=== PATIENT | female | born 1960 | race Caucasian/White ===

== ENCOUNTER 2017-08-13 12:08 | Emergency (ER) | payer OTHER ==
[2017-08-13 12:29] VITALS: BP 105/62
--- NOTE | 2017-08-13 12:47 | UC ---
Complaint Female HPI - HPI Summary HPI Summary: Dysuria, frequency, hesitency for about 4 days. No fever, vomiting, flank pain. This feels similar to prior UTi in the distant past. - History Of Current Complaint Chief Complaint: UCGU Stated Complaint: URINARY Time Seen by Provider: 08/13/17 12:20 Hx Obtained From: Patient Onset/Duration: Gradual Onset, Lasting Days Timing: Constant Severity Initially: Mild Severity Currently: Moderate Pain Intensity: 7 Character: Burning Aggravating Factor(s): Urination Alleviating Factor(s): Nothing Associated Signs And Symptoms: Positive: Negative - Allergies/Home Medications Allergies/Adverse Reactions: Allergies Allergy/AdvReac Type Severity Reaction Status Date / Time Penicillins Allergy Edema Verified 08/13/17 12:24 shrimp Allergy GI Upset Verified 08/13/17 12:24 Home Medications: Home Medications Ibuprofen TAB* [Advil TAB*] 400 mg PO Q6H PRN 08/13/17 [History Confirmed ] Pumpkin Seed Extract/Soy Germ [Azo Bladder Control/Go-Le] 1 cap PO Q6HR PRN [History Confirmed 08/13/17] PMH/Surg Hx/FS Hx/Imm Hx Previously Healthy: No - uti, - Surgical History Surgical History: Yes Surgery Procedure, Year, and Place: Lumpectomy - Family History Known Family History: Positive: Other - no related diseases in the family. - Social History Alcohol Use: Occasionally Substance Use Type: None Smoking Status (MU): Never Smoked Tobacco Review of Systems Genitourinary: Dysuria, Frequency, Urgency All Other Systems Reviewed And Are Negative: Yes Physical Exam Triage Information Reviewed: Yes Appearance: Well-Appearing, No Pain Distress, Well-Nourished Vital Signs: Initial Vital Signs Temp 97.9 F 08/13/17 12:20 Pulse 66 08/13/17 12:20 Resp 14 08/13/17 12:20 BP 105/62 08/13/17 12:20 Pulse Ox 96 08/13/17 12:20 Vital Signs Reviewed: Yes Eyes: Positive: Conjunctiva Clear ENT: Positive: Normal ENT inspection Neck: Positive: Supple, Nontender, No Lymphadenopathy. Negative: Nuchal Rigidity Respiratory: Positive: Normal breath sounds, No respiratory distress, No accessory muscle use. Negative: Respiratory distress, Decreased breath sounds, Accessory muscle use, Crackles, Rhonchi, Stridor Cardiovascular: Positive: No Murmur, Pulses Normal, Brisk Capillary Refill Abdomen Description: Positive: No Organomegaly, Soft. Negative: Distended, Guarding Musculoskeletal: Positive: Strength Intact, ROM Intact. Negative: No Edema Neurological: Positive: Alert, Muscle Tone Normal. Negative: Fatigued Psychological: Positive: Age Appropriate Behavior Skin: Negative: rashes Complaint Female Dx - Differential Dx/Diagnosis Provider Diagnoses: uti Discharge - Sign-Out/Discharge Documenting (check all that apply): Discharge/Admit/Transfer - Discharge Plan Condition: Good Disposition: HOME Prescriptions: Sulfamethox/Trimethoprim DS* [Bactrim DS 800/160 TAB*] 1 tab PO BID #14 tab Patient Education Materials: Dysuria (ED), Urinary Tract Infection in Older Adults (ED) Referrals: Non Staff,Doctor [Primary Care Provider] - - Billing Disposition and Condition Condition: GOOD Disposition: Home
== END 2017-08-13 12:48 | disposition home or self-care (01) ==
LOC: UCCORT 12:08
DX: N39.0 Urinary tract infection, site not specified (principal); Z88.0 Allergy status to penicillin; Z91.013 Allergy to seafood
CPT/HCPCS: 81003; 87077; 87086; 99202; G0463